=== PATIENT | male | born 1940 | race Caucasian/White ===

== ENCOUNTER 2023-05-29 23:52 | Inpatient (IN) | payer OTHER, SELFPAY ==
[2023-05-29 17:19] VITALS: BP 143/66
[2023-05-29 17:40] LABS: % Basophils 0.1 % (0-2); % Eosinophils 0.1 % (0-6); % Immature Granulocytes 0.4 % (0-0.5); % Lymphocytes 7.1 % (20.5-51.1); % Monocytes 6.2 % (1.7-9.3); % Neutrophils 86.1 % (42.2-75.2); Absolute Lymphocytes 0.5 10^3/uL (1.2-3.4); Absolute Monocytes 0.5 10^3/uL (0.1-0.6); Absolute Neutrophils 6.2 10^3/uL (1.4-6.5); Hematocrit 40.7 % (39.0-52.0); Hemoglobin 13.9 g/dL (13.0-18.0); Mean Corp Hgb Conc. 34.2 g/dL (33.0-37.0); Mean Corpuscular Hgb 33.6 pg (27.0-31.0); Mean Corpuscular Volume 98.3 fL (80.0-94.0); Nucleated Red Blood Cells % 0 % (-); Red Blood Cell Count 4.14 10^6/uL (4.70-6.10); Red Cell Dist. Width 17.4 % (11.5-14.5); White Blood Cell Count 7.2 10^3/uL (4.8-10.8)
[2023-05-29 17:50] LABS: INR 1.38; PT 16.8 Sec (11.4-14.6)
[2023-05-29 17:51] LABS: APTT 31.4 Sec (23.4-35.0)
[2023-05-29 17:52] LABS: ALT (SGPT) 27 U/L (0-50); AST (SGOT) 41 U/L (17-59); Albumin 3.3 g/dl (3.5-5.0); Alkaline Phosphatase 71 U/L (38-126); Blood Urea Nitrogen 13 mg/dl (9-20); Calcium 8.1 mg/dl (8.4-10.2); Carbon Dioxide 30 mmol/L (22-30); Chloride 104 mmol/L (98-107); Glucose 117 mg/dl (70-99); Lipase 67 U/L (23-300); Mean Platelet Volume 9.2 fL (7.4-10.4); Platelet Count 85 10^3/uL (130-400); Potassium 3.4 mmol/L (3.5-5.1); Sodium 139 mmol/L (135-145); Total Protein 6.6 g/dl (6.3-8.2); eGFR > 60.00
[2023-05-29 19:49] VITALS: BMI 26.1
[2023-05-29 20:03] VITALS: BP 148/86
--- NOTE | 2023-05-29 20:49 | ED.GENMED ---
History of Present Illness
General
Chief Complaint: Breathing Problem
Source: patient and family (Son)
Exam Limitations: dementia (Slight Dementia)
Time Seen by Provider: 05/29/23 20:28
Travel History
Have you had any contact with someone who has COVID-19?: No
Do you have any symptoms of coronavirus? Fever > 100 degrees, chills, cough, shortness of breath, sore throat, loss of taste or smell, muscle aches, or headache?: No
History of Present Illness
History of Present Illness:
This is a 83 year old male that comes in with family with c/o fluid in his lungs and abd. Son states that he was the PCP and they went there as they had seen the grocery specialist and had not heard anything back. States that his weight went up
from 165 to 185 and he was SOB and coughing. States that he also had some dizziness. Denies any fever, chills, chest pain, abd pain, nausea, vomiting, diarrhea, headache, urianary burning.
Past History
Past History
ED Past Medical History: CAD, Cancer (Skin CA), CVA, Hypercholesterolemia, NIDDM and Other (Dementia, Cirrhosis of liver, )
ED Past Surgical History: Cardiac (Stent), Orthopedic (Back surgery) and Other (Hernia)
Social History
Tobacco: Former smoker
Alcohol: None
Personal:
Living: with family
Review of Systems
Review of Systems
Other source history: family
All Other Systems: ROS reviewed and negative except as documented in HPI and ROS
Constitutional: Reports no symptoms; Denies fever or chills
EENT: Reports no symptoms
Respiratory: Reports cough and trouble breathing
Cardiac: Reports no symptoms; Denies chest pain
ABD/GI: Reports other (ascites); Denies abdominal pain, nausea, vomiting or diarrhea
: Reports dark urine
Musculoskeletal: Reports no symptoms
Skin: Reports no symptoms
Neurological: Reports dizzy; Denies headache
Psychiatric: Reports no symptoms
Phy Exam
General Physical Exam
General Presentation: no apparent distress
General age: appears stated age
General Skin: warm and dry
General Habitus: elderly
General Mental: usual mental status
General Hydration: dry mucous membranes
ENT Exam
ENT Exam: TM's normal, pharynx normal and neck supple
Eye Exam
Eye Exam: EOMI
Cardiovascular Exam
Cardiovascular Exam: regular rate/rhythm and normal peripheral pulses
Pulmonary Exam
Pulmonary Exam: no respiratory distress, chest non tender, no rhonchi, no wheezing, no cough and other (Fine crackles at bases)
Gastrointestinal Exam
Gastrointestinal Exam: non tender, soft, no organomegaly, no pulsatile mass and ascites
Musculoskeletal Exam
Musculoskeletal Exam: full ROM and edema (+2 pitting edema of feet, lower legs into thighs)
Skin Exam
Skin Exam: normal color, warm/dry, no rash, no petechia and other (healing wounds on the left toes)
Psychiatric Exam
Psychiatric Exam: normal mood/affect
Scores
Heart Failure Risk
Heart Failure Risk Score: Not Applicable
Course
Orders/Labs/Results
Orders:
Orders
05/29/23 17:33
Complete Blood Count/With Diff Urgent
Comprehensive Metabolic Panel Urgent
Lipase Urgent
PT/INR [Prothrombin Time] Urgent
PTT Urgent
05/29/23 20:40
CR Chest - 2 Views Urgent
Comment:
Reason For Exam: sob cOUGH
US Abdomen Limited Urgent
Comment:
Reason For Exam: aBD ASCITES FLUID CHECK
05/29/23 20:55
Electrocardiogram (*1) Urgent
Reason for Study: Shortness of Breath
EKG- Treatment ONCE
05/29/23 23:06
Admit/Transfer Patient As Directed
Co-Sign Provider:
Level of Care: Inpatient admission
Assign to:: Telemetry
Physician / Group: Marj
Diagnosis: Ascites
Reason for Telemetry: Arrhythmia
Date to Stop Telemetry: 06/01/23
Time to Stop Telemetry: 11:00
Reason for Hospitalization: Paracentesis, GI consult
Expected length of stay greater than two midnights?: Yes
ELOS- Estimated Length of Stay in days: 3
I certify the patient meets the requirements for IP care: Yes
05/29/23 23:08
Code Status As Directed
Resuscitation Status: Full Code
05/29/23 23:27
Add On- LAB Routine
Tests Added?: direct bilirubin
05/29/23 23:28
Potassium Chloride [KCl] 20 meq 0.9% Sodium Chloride 250 ml [Nss] 250 ml IV NOW
05/29/23 23:29
COVID-19 Antigen Routine
Source: Nasal Swab
05/29/23 23:30
Procalcitonin Urgent
PCT Algorithmm Indication: Respiratory
06/01/23 11:00
DC Protocol for Telemetry ONCE
Abnormal Lab Results
05/29/23
17:33
RBC 4.14 L 10^6/uL
(4.70-6.10)
MCV 98.3 H fL
(80.0-94.0)
MCH 33.6 H pg
(27.0-31.0)
RDW 17.4 H %
(11.5-14.5)
Plt Count 85 L 10^3/uL
(130-400)
Absolute Lymphs (auto) 0.5 L 10^3/uL
(1.2-3.4)
Neutrophils % 86.1 H %
(42.2-75.2)
Lymphocytes % 7.1 L %
(20.5-51.1)
PT 16.8 H Sec
(11.4-14.6)
Potassium 3.4 L mmol/L
(3.5-5.1)
Creatinine 0.6 L mg/dL
(0.7-1.3)
Glucose 117 H mg/dl
(70-99)
Calcium 8.1 L mg/dl
(8.4-10.2)
Total Bilirubin 2.0 H mg/dl
(0.2-1.3)
Albumin 3.3 L g/dl
(3.5-5.0)
05/29/23 17:33
05/29/23 17:33
Plt low, PT 16.8 with INR 1.38, PTT 31. 3, Lipase normal at 67, Glucose nonfasting. Calcium slightly low. Total sedrick mildly elevated. Albumin slightly low.
Vital Signs
Initial and Last Documented VS:
Initial Vital Signs
Temp Pulse Resp BP Pulse Ox
97.1 F 59 20 143/66 91
05/29/23 17:19 05/29/23 17:19 05/29/23 17:19 05/29/23 17:19 05/29/23 17:19
Last Documented Vital Signs
Temp Pulse Resp BP Pulse Ox
97.3 F 69 17 126/66 99
05/29/23 22:54 05/30/23 00:15 05/30/23 00:15 05/30/23 00:00 05/30/23 00:19
MDM/Problems Addressed
Differential Diagnosis Includes:
Abd ascites, CHF
MDM/Problems Addressed:
This is a 83 year old male that is brought in by his family with c/o fluid in the lungs and abd ascities. Son states that he needs to be tapped.
Will get labs and Chest X- Ray. Will also get limited US.
Back into see patient and son. Explained that he would be admitted. Chest x-ray was read as Pleural effusion with pneumonia. However, do not feel that this is a Pneumonia as patient has no cough, fever or WBC count. Will hold off on antibiotics.
Patient will be admitted. Hospitalist notified.
Chronic conditions affecting care: Other (Ascites, )
Acute Exacerbation and/or Progression of Chronic Illness:
ascites
*Radiology
Radiology exam reviewed: radiology read reviewed (US-Large amount ascites in bilateral upper and lower quadrants CHest- Mild left lower lobe Pneumonia. Nonspecific small right pleural effusion)
*Pulse Oximetry
Patient hypoxic: no
*EKG
Interpreted by ED Provider?: Yes
Heart Rate: 65
Rate: normal
Rhythm: sinus
[place]: left axis deviation
Interval: first degree heart block
QRS Pattern: low voltage
Ischemia: no ischemia (Checked by Dr. Pepper)
*Round Up Ring Hand Interpretation
Rate: normal
Heart Rate: 63
Rhythm: sinus
*Critical Care Note
Total Time (30-74mins, 75-104mins- exclusive of procedures): Not Applicable
ED Attending Note
-
Portions of this chart may have been created with voice recognition software.� Occasional wrong word or��sound alike� substitutions may have occurred due to the inherent limitations of voice recognition software.
Discharge Plan
Departure
Patient Disposition: Admit
Date of Disposition: 05/29/23
Time of Disposition: 22:11
Admit to: Telemetry
Presentation/result/management discussed w/ accepting MD/DO: Hospitalist
Patient with high blood pressure during this ER visit?: Yes
Condition: Good
Covid-19: Not Applicable
Discharge Problem:
Pleural effusion, Abdominal ascites
Interventions
Interventions:
*Risk Screen - Suicide Last Done: 05/29/23 19:54
*General Assessment Last Done: 05/29/23 19:54
*Neglect/Abuse Screening Last Done: 05/29/23 21:06
ED- Fall Risk Assessment Last Done: 05/29/23 21:06
*ED COVID-19 Vaccine History Last Done: 05/29/23 19:54
ED- Cardiac Assessment Last Done: 05/29/23 21:06
ED- Pulmonary Assessment Last Done: 05/29/23 21:06
[2023-05-29 21:00] VITALS: BP 130/95
[2023-05-29 22:11] VITALS: BP 137/77
[2023-05-29 23:00] VITALS: BP 123/69
--- NOTE | 2023-05-29 23:19 | HPS.HSE ---
Addendum entered and electronically signed by Kym Mcmahan MD 05/30/23 00:01:
I saw and examined the patient.
The EDGE FINISHER's note was reviewed and I agree with the note.
Comment:
Mr. Chandu Mcgrath is a 83 yo man with hx CAD, atrial fibrillation, HLD, NIDDM, dementia who presents to the ER with abdominal swelling. Patient poor historian. Son reports he was admitted in [place] last year and had thoracentesis of lung with
complication of pneumothorax but swelling in abdomen was not addressed. It has been progressive resulting in ER visit today. Triage VS T 97.1, P 59, RR 20 BP 143/66, SpO2 91%. Labs with WBC 7.2, Hg 13.9, PLT 85. INR 1.38. Na 139, K+ 3.4, Cr
0.6, Glucose 117.
On exam patient is frail appearing, poor historian, lungs with decreased breath sounds. abdomen distended, + fluid shift, b/l LE swelling.
CXR
IMPRESSION:
MilD left lower lobe pneumonia. Nonspecific small right pleural effusion.
ABDOMEN US
Findings/impression:
Large amount ascites in bilateral upper and lower quadrants.
Patient will be admitted for further work-up and treatment of significant abdominal ascites. IR consulted for paracentesis. Son reports ascites has been present for many months but not fully worked up. Will consult GI. Cirrhosis noted in
history, need to obtain records.
Mild LLL pneumonia seen on CXR but patient without leukocytosis or fever. Suspect resp symptoms mainly related to large volume ascites. Will follow up procalcitonin.
Original Note:
Family Physician
-
Family Physician: Adrian Edmonds
Chief Complaint
-
Abdominal Distention
History of Present Illness
Patient is an 83 y/o male past medical history of CAD, CVA, DM who presents with shortness of breath and increased abdominal distention. Patient's son provide history due to dementia. Patient was recently at [facility] where he required
thoracentesis of his right lung. It is unclear why patient developed the the pleural effusion. Son notes since returning home patient has been having increasing abdominal distension, and has gained 20lbs. There is no reported history of heart
failure. There is question of cirrhosis, though son does not confirm any history of liver disease.
Medical History
Past Medical History
Past Medical History: Reports Other
Additional Past Medical History:
Coronary Artery Disease s/p Stents
Paroxysmal Atrial Fibrillation
CVA with Residual Right Arm Weakness
Chronic Hypotension
Hyperlipidemia
Diabetes Mellitus, Type
BPH
Dementia
Past Surgical History: Reports Other
Additional Past Surgical History:
Back Surgery x 3
Appendectomy
Social History
Tobacco: Former Smoker
Alcohol: Former (Per son didn't drink much, but when he did drink he couldn't handle his liquor )
Family History
Family History: Unable to Obtain
Allergies / Home Medications
Allergies reflects when Allergies were last updated in [employer].
Home Medications with original date entered in [employer]
Allergy/Medication List:
Allergies
Allergy/AdvReac Type Severity Reaction Status Date / Time
Sulfa (Sulfonamide Allergy Unknown Verified 05/29/23 17:19
Antibiotics)
Tetanus Vaccines and Toxoid Allergy Unknown Verified 05/29/23 17:19
Home Medications
acetaminophen 500 mg tablet 500 mg PO Q6H PRN mild pain/fever 05/29/23
amiodarone 200 mg tablet 200 mg PO DAILY 05/29/23
atorvastatin 40 mg tablet 40 mg PO DAILY 05/29/23
clopidogrel 75 mg tablet 75 mg PO DAILY 05/29/23
empagliflozin 25 mg-linagliptin 5 mg tablet (Glyxambi) 1 tab PO DAILY 05/29/23
finasteride 5 mg tablet 5 mg PO DAILY 05/29/23
midodrine 5 mg tablet 5 mg PO BID@0800,1300 05/29/23
nitroglycerin 0.4 mg sublingual tablet 0.4 mg sublingual [id number] PRN chest pain 05/29/23
venlafaxine 25 mg tablet 25 mg PO BID@0800,1300 05/29/23
Review of Systems
-
Unable to obtain full review of systems at this time due to: Dementia
Physical Exam
Vital Signs
Vital Signs
Temp Pulse Resp BP Pulse Ox
97.3 F 65 19 137/77 97
05/29/23 22:54 05/29/23 22:30 05/29/23 22:30 05/29/23 22:11 05/29/23 22:30
Physical Exam
General: Comfortable and Conversant
HEENT: Anicteric and Moist mucous membranes
Respiratory: Rales (Bilateral bases)
Cardiac: S1/S2 and Regular Rhythm
GI: Soft, Non Tender and Distended
Musculoskeletal: No Clubbing, No Cyanosis and Other (+2 pitting edema bilateral lower ext edema)
Skin: Warm and Dry
Neuro: Awake and Alert
Laboratory Results
-
05/29/23 17:33
05/29/23 17:33
Laboratory Results
PT 16.8 Sec (11.4-14.6) H 05/29/23 17:33
INR 1.38 05/29/23 17:33
APTT 31.4 Sec (23.4-35.0) 05/29/23 17:33
Total Bilirubin 2.0 mg/dl (0.2-1.3) H 05/29/23 17:33
AST 41 U/L (17-59) 05/29/23 17:33
ALT 27 U/L (0-50) 05/29/23 17:33
Alkaline Phosphatase 71 U/L (38-126) 05/29/23 17:33
Lipase 67 U/L (23-300) 05/29/23 17:33
Data Reviewed
-
Diagnostic Radiology: Report Reviewed by me
Ultrasound: Report Reviewed by me
Lab Data: Labs Reviewed by me
Impression/Plan
-
Increased Abdominal Ascites, questionable history of cirrhosis
-Consult IR for paracentesis
-Consult GI
Questionable PNA by CXR
-Patient without fevers or leukocytosis
-Hold on antibiotics
-Check Procal
Coronary Artery Disease s/p Stents
CVA with Residual Right Arm Weakness
-Continue Plavix
Paroxysmal Atrial Fibrillation
-Continue amiodarone
-Patient is not on anticoagulation as outpatient likely due to thrombocytopenai
Chronic Hypotension
-Continue Midodrine
Hyperlipidemia
-Continue atorvastatin
Diabetes Mellitus, Type II
-Hold oral meds
-Monitor sugars and continue coverage insulin
BPH
-Continue finasteride
Dementia
-Continue venlafaxine
-Monitor for mood/behavior changes
Code Status: Full Code
--- NOTE | 2023-05-29 23:23 | W.PN.UPDATE ---
Update Note
Progress Note Update
I saw and examined the patient.
The CLINICAL PRODUCT MANAGER's note was reviewed and I agree with the note.
Comment:
Mr. Chandu Mcgrath is a 83 yo man with hx CAD, atrial fibrillation, HLD, NIDDM, dementia who presents to the ER with abdominal swelling. Patient poor historian. Son reports he was admitted in [place] last year and had thoracentesis of lung with
complication of pneumothorax but swelling in abdomen was not addressed. It has been progressive resulting in ER visit today. Triage VS T 97.1, P 59, RR 20 BP 143/66, SpO2 91%. Labs with WBC 7.2, Hg 13.9, PLT 85. INR 1.38. Na 139, K+ 3.4, Cr
0.6, Glucose 117.
On exam patient is frail appearing, poor historian, lungs with decreased breath sounds. abdomen distended, + fluid shift, b/l LE swelling.
CXR
IMPRESSION:
MilD left lower lobe pneumonia. Nonspecific small right pleural effusion.
ABDOMEN US
Findings/impression:
Large amount ascites in bilateral upper and lower quadrants.
Patient will be admitted for further work-up and treatment of significant abdominal ascites. IR consulted for paracentesis. Son reports ascites has been present for many months but not fully worked up. Will consult GI. Cirrhosis noted in
history, need to obtain records.
Mild LLL pneumonia seen on CXR but patient without leukocytosis or fever. Suspect symptoms mainly related to large volume ascites. Will follow up procalcitonin.
[2023-05-30] VITALS (17 sets, daily range): BP systolic 63–160; BP diastolic 56–90; BMI 26.0
[2023-05-30] MEDS: KCL 260 MEQ IV (00:29)
[2023-05-30 00:32] LABS: COVID-19 Antigen Negative (Negative)
[2023-05-30 00:46] LABS: Procalcitonin < 0.05 ng/ml (0.0-0.25)
[2023-05-30 01:36] LABS: Direct Bilirubin 0.7 mg/dl (0.0-0.4)
--- NOTE | 2023-05-30 02:11 | PTCARENOTE ---
Pt received from ED via stretcher. Pulled over to bed x3 without incident. AAOx2 (time). Telemetry = SR/1st degree/BBC/prolonged QT. Oriented to surroundings and plan of care discussed. Pt is very poor historian, unable to verify home meds/PMH.
Pt edentulous (reports dentures are at home) somewhat garbled speech. Admission completed w/patient and medical record. Full physical assessment documented (refer to worklist). Pt with scattered scabbed abrasions to LE, feet, toes, all HANDTOOLS REPAIRER.
Preventative heel foams placed. Pt able to turn self in bed. Abdomen largely distended, firm, ascites. #22 RFA with KCL rider infusing without complication. Bed alarm active for safety. Call hdz within reach. Will continue to closely monitor.
[2023-05-30 06:24] LABS: Hematocrit 37.2 % (39.0-52.0); Hemoglobin 12.3 g/dL (13.0-18.0); Mean Corp Hgb Conc. 33.1 g/dL (33.0-37.0); Mean Corpuscular Hgb 32.8 pg (27.0-31.0); Mean Corpuscular Volume 99.2 fL (80.0-94.0); Mean Platelet Volume 8.9 fL (7.4-10.4); Platelet Count 76 10^3/uL (130-400); Red Blood Cell Count 3.75 10^6/uL (4.70-6.10); Red Cell Dist. Width 17.2 % (11.5-14.5); White Blood Cell Count 5.1 10^3/uL (4.8-10.8)
[2023-05-30 07:01] LABS: Blood Urea Nitrogen 14 mg/dl (9-20); Calcium 7.9 mg/dl (8.4-10.2); Carbon Dioxide 32 mmol/L (22-30); Chloride 104 mmol/L (98-107); Estimated Creatinine Clearance 88 ml/min; Glucose 74 mg/dl (70-99); Magnesium 2.2 mg/dl (1.6-2.3); Potassium 3.4 mmol/L (3.5-5.1); eGFR > 60.00
[2023-05-30 07:07] LABS: Sodium 139 mmol/L (135-145)
[2023-05-30 08:07] LABS: Glucose - Point of Care 102 mg/dl (70-99)
[2023-05-30] MEDS: NOVOLOG FLEXPEN-LOW RESISTANCE SC ×3 (08:15→17:08)
[2023-05-30 09:11] LABS: Glycohemoglobin (HgbA1c) 5.5 % (4.0-5.6)
--- NOTE | 2023-05-30 09:27 | W.PN.HOSP.TC ---
Today's Communication/Plan
-
see A/P
Assessment / Plan
Assessment / Plan
83 y/o male past medical history of CAD, atrial fibrillation, HLD, NIDDM, dementia, CVA, who presented with shortness of breath and increased abdominal distention.�Patient's son provide history due to dementia.�
Patient was recently at [facility] where he required thoracentesis of his right lung.� It is unclear why patient developed the pleural effusion.� Son notes since returning home patient has been having increasing abdominal distension, and has
gained 20lbs. There is no reported history of heart failure. There is question of cirrhosis, though son does not confirm any history of liver disease.
A/P:
# Increased Abdominal Ascites, questionable history of cirrhosis
s/p large volume paracentesis (9 L removed) by IR 05/30 ; give albumen 62.5 g after paracentesis
Ascitic fluid neg for SBP
SAAG 2.3, indicating portal hypertension
Check echo
GI consulted
Follow hepatitis panel
# Questionable PNA by CXR
Patient without fevers or leukocytosis
Procal negative
Hold on antibiotic
# Coronary Artery Disease s/p Stents
# CVA with Residual Right Arm Weakness
Continue Plavix
# Paroxysmal Atrial Fibrillation
Continue amiodarone
Patient is not on anticoagulation as outpatient likely due to thrombocytopenia
# Chronic Hypotension
BP has improved
Continue Midodrine with holding parameter
BP Stable
# Hyperlipidemia
Continue atorvastatin
# Diabetes Mellitus, Type II
Hold oral meds
Monitor sugars and continue coverage insulin
# BPH
Continue finasteride
# Dementia
Continue venlafaxine
Monitor for mood/behavior changes
# Hypokalemia
replete
Mag WNL
Code Status: Full Code
SCD for DVT ppx
DW RN
called son to update, call not answered
Anticipated Discharge: 24 - 48 hours
Subjective/Interval History
-
Date of Service: May 30, 2023
Objective Data
-
Labs:
Laboratory Results
05/30/23
05:42
WBC 5.1
Hgb 12.3 L
Hct 37.2 L
Plt Count 76 L
Sodium 139
Potassium 3.4 L
Chloride 104
Carbon Dioxide 32 H
BUN 14
Creatinine 0.7
Glucose 74
Calcium 7.9 L
Vital Signs:
Vital Signs
Temp Pulse Resp BP Pulse Ox
36.4 C 62 14 117/67 99
05/30/23 07:57 05/30/23 07:57 05/30/23 07:57 05/30/23 07:57 05/30/23 07:57
I&O
05/29/23 05/30/23 05/31/23
06:59 06:59 06:59
Intake Total 120 / 120
Output Total 300 / 300
Balance -180 / -180
Review of Systems
-
Unable to obtain full review of systems at this time due to: Other (sleeping)
Physical Exam
-
General: Well Developed, Well Nourished and Comfortable
HEENT: Normocephalic, Atraumatic, Nose Appears Normal and Ears Appear Normal
Respiratory: Clear to Auscultation and Non Labored Respirations; Negative Accessory Resp Muscle Use
Cardiac: Regular Rhythm and S1/S2
GI: Soft, Nontender and Nondistended
Skin: Warm and Dry
Psych: Calm
Data Reviewed
-
Labs: Labs Reviewed by me
--- NOTE | 2023-05-30 10:25 | CON.GI ---
Addendum entered and electronically signed by Magdiel Swain MD 05/30/23 19:09:
I saw and examined the patient.
The PA's note was reviewed and I agree with the note.
Comment:
The patient is a 83 year old male with h/o CAD (s/p stent on Plavix), afib, CVA with residual right arm weakness, DM, hyperlipidemia, and dementia who p/w abdominal distension. This was noted for past few months and his abdomen increased in size.
Denies jaundice, abdo pain. No history of liver disease. Patient has remote h/o alcohol abuse, he used to drink a fifth of liquor every day about 30 years ago. Gained weight, about 20 pounds per hospitalist note.
Impression / Rec:
1. New onset ascites - poor historian with dementia. Has thrombocytopenia and mildly elevated INR. No imaging done here yet for his liver. Given his biochemical findings and alcohol hx (although remote), likely has decompensated cirrhosis.
Removed 9 liters of ascitic fluid today. Albumin given. SAAG > 1.1, likely portal hypertensive ascites which is consistent with likely underlying cirrhosis. Will exclude other etiologies with US liver w/ doppler. Check viral hep panel and other
serologic tests for chronic liver dz for now. Will follow.
Original Note:
Consultation
-
Date/Time Consultation Requested: 05/30/23 0052
Date/Time Consultation Performed: 05/30/23 1130
Requesting Provider: Mia Baig PA-C
Performing Provider: Dr. Swain / Lana Green PA-C
Reason for Consultation: ascites
Medical History
Chief Complaint / HPI
Chief Complaint: abdominal distension
History of Present Illness:
Chandu is an 83 year old male with a past medical history of CAD (s/p stent, on Plavix), atrial fibrillation, CVA with residual right arm weakness, DM, hyperlipidemia, and dementia who presented to the hospital with complaint of abdominal
distension. Patient had noticed this over the past few months and states it was increasing in size. No abdominal pain, nausea, vomiting, diarrhea or constipation. He denies any jaundice or dark urine. No history of liver disease. Patient denies
drinking any alcohol now, but states that 30 years ago he used to drink a fifth of liquor every day. Appetite has been good, no weight loss. He has recently gained weight, about 20 pounds per hospitalist note. Patient is very pleasant, although
somewhat of a poor historian due to dementia. Labs reviewed. LFTs: AST 41, ALT 27, alk phos 71, total bili 2.0, direct bili 0.7. CBC: WBC 5.1, Hgb 12.3, platelets 76. Coags: PT 16.8, INR 1.38. US abdomen showed large amount of ascites. Patient
underwent paracentesis today (05/30) with 9L removed, ascitic fluid analysis pending.
Past Medical History
Past Medical History: CAD, Hypercholesterolemia, NIDDM and Other (CVA with residual right arm weakness, )
Social History
Tobacco: Former Smoker
Alcohol: Former (pt reports 30 years ago he drank a fifth of liquor every day)
Drug: None
Family History
Family History: Other (no family history of GI malignancies or liver disease)
Allergies / Home Medications
Allergy/AdvReac Type Severity Reaction Status Date / Time
Sulfa (Sulfonamide Allergy Unknown Verified 05/29/23 17:19
Antibiotics)
Tetanus Vaccines and Toxoid Allergy Unknown Verified 05/29/23 17:19
Medication Instructions Recorded
acetaminophen 500 mg tablet 500 mg PO Q6H PRN mild pain/fever 05/29/23
amiodarone 200 mg tablet 200 mg PO DAILY Arrhythmia 05/29/23
atorvastatin 40 mg tablet 40 mg PO DAILY High Cholesterol 05/29/23
clopidogrel 75 mg tablet 75 mg PO DAILY Blood Clot 05/29/23
Prevention/Tx
empagliflozin 25 mg-linagliptin 5 1 tab PO DAILY Diabetes 05/29/23
mg tablet (Glyxambi)
finasteride 5 mg tablet 5 mg PO DAILY PROSTATE HEALTH 05/29/23
midodrine 5 mg tablet 5 mg PO BID@0800,1300 Blood 05/29/23
Pressure
nitroglycerin 0.4 mg sublingual 0.4 mg sublingual [id number] PRN 05/29/23
tablet chest pain
venlafaxine 25 mg tablet 25 mg PO BID@0800,1300 Mental 05/29/23
Health
Review of Systems
-
History Source: Patient
All other systems: A 12 pt ROS was Negative except as stated above in HPI
Vital Signs
Temp Pulse Resp BP Pulse Ox
97.7 F 63 18 136/82 98
05/30/23 09:33 05/30/23 09:33 05/30/23 09:33 05/30/23 09:33 05/30/23 09:33
Physical Exam
Exam
General: Well Developed, Well Nourished and No Apparent Distress
HEENT: Anicteric
Respiratory: Clear
Cardiac: Regular Rhythm
GI: Soft, Non Tender, Normal Bowel Sounds and Distended
Skin: Warm and Dry
Neuro: Awake and Alert
Psych: Calm
Results
WBC 5.1 10^3/uL (4.8-10.8) 05/30/23 05:42
Hgb 12.3 g/dL (13.0-18.0) L 05/30/23 05:42
Hct 37.2 % (39.0-52.0) L 05/30/23 05:42
MCV 99.2 fL (80.0-94.0) H 05/30/23 05:42
Plt Count 76 10^3/uL (130-400) L 05/30/23 05:42
Absolute Neuts (auto) 6.2 10^3/uL (1.4-6.5) 05/29/23 17:33
PT 16.8 Sec (11.4-14.6) H 05/29/23 17:33
INR 1.38 05/29/23 17:33
APTT 31.4 Sec (23.4-35.0) 05/29/23 17:33
Sodium 139 mmol/L (135-145) 05/30/23 05:42
Potassium 3.4 mmol/L (3.5-5.1) L 05/30/23 05:42
Chloride 104 mmol/L (98-107) 05/30/23 05:42
Carbon Dioxide 32 mmol/L (22-30) H 05/30/23 05:42
BUN 14 mg/dl (9-20) 05/30/23 05:42
Creatinine 0.7 mg/dL (0.7-1.3) 05/30/23 05:42
Calcium 7.9 mg/dl (8.4-10.2) L 05/30/23 05:42
Total Bilirubin 2.0 mg/dl (0.2-1.3) H 05/29/23 17:33
AST 41 U/L (17-59) 05/29/23 17:33
ALT 27 U/L (0-50) 05/29/23 17:33
Alkaline Phosphatase 71 U/L (38-126) 05/29/23 17:33
Lipase 67 U/L (23-300) 05/29/23 17:33
Diagnostic Image Results:
US Abdomen (limited) 05/29/23:
Large amount ascites in bilateral upper and lower quadrants.
Paracentesis 05/30/23:
Successful ultrasound guided diagnostic and therapeutic paracentesis.
9000 cc of clear donato ascitic fluid was evacuated. Samples sent for analysis as requested.
Prior GI Procedures:
EGD: never
Colonoscopy: 10 yrs ago, ?polyps
Assessment / Plan
-
83 year old male with CAD (s/p stent, on Plavix), atrial fibrillation, CVA with residual right arm weakness, DM, hyperlipidemia, and dementia who presented to the hospital with complaint of abdominal distension. Patient had noticed this over the
past few months and states it was increasing in size. No abdominal pain, nausea, vomiting, diarrhea or constipation. He denies any jaundice or dark urine. No history of liver disease. Patient denies drinking any alcohol now, but states that 30 years
ago he used to drink a fifth of liquor every day. Appetite has been good, no weight loss. He has recently gained weight, about 20 pounds per hospitalist note. Patient is very pleasant, although somewhat of a poor historian due to dementia. Labs
reviewed. LFTs: AST 41, ALT 27, alk phos 71, total bili 2.0, direct bili 0.7. CBC: WBC 5.1, Hgb 12.3, platelets 76. Coags: PT 16.8, INR 1.38. US abdomen showed large amount of ascites. Patient underwent paracentesis today (05/30) with 9L removed,
ascitic fluid analysis pending.
IMPRESSION / PLAN:
Ascites, new-onset
-suspect ascites may be due to underlying cirrhosis
-s/p paracentesis 05/30 with 9L removed
-awaiting ascites fluid analysis
-will repeat US post-paracentesis, with US abdomen w Doppler to further image the liver
-will order Hepatitis serologies
-consider 2D echocardiogram to rule out heart failure as a possible cause of the ascites
We will follow.
-
-
Thank you for consultation and allowing me to participate in the patient's care. Please call the catering operations manager GI physician during the after hours with any questions or concerns.
[2023-05-30] MEDS: PLAVIX 75 MG PO (10:59)
[2023-05-30] MEDS: EFFEXOR 25 MG PO ×2 (10:59→14:15)
[2023-05-30] MEDS: LIPITOR 40 MG PO (10:59)
[2023-05-30] MEDS: PROSCAR 5 MG PO (10:59)
[2023-05-30] MEDS: KCL 20 MEQ PO (11:01)
[2023-05-30] MEDS: ProAmatine 5 MG PO (11:01)
[2023-05-30] MEDS: PACERONE 200 MG PO (11:01)
[2023-05-30 11:07] LABS: Body Fluid Albumin < 1.0 g/dl; Body Fluid Amylase < 30 U/L; Body Fluid LDH < 90 U/L
[2023-05-30 11:41] LABS: Glucose - Point of Care 85 mg/dl (70-99)
[2023-05-30] MEDS: FLUSH (NSS) 1 FLUSH IV (12:43)
[2023-05-30] MEDS: FLEXBUMIN 100 IV ×2 (12:43→14:16)
[2023-05-30 13:12] LABS: Body Fluid Mononuclear 87.3 %; Body Fluid Polymorphonuclear 12.7 %; Body Fluid WBC 332 /CUMM
[2023-05-30 13:13] LABS: Body Fluid Second Tech SD
--- NOTE | 2023-05-30 14:02 | CM ---
Chart reviewed. Spoke with pt at bedside and son via phone
Pt resides in a 2 story home with his and son - they are his care-takers
Has a ramp into home and a stair glide; other dme include rolling walker, quad cane and shower chair
Has been to rehab in past - unsure of facility
Has had VNA/PT at home in past with [facility]
Will have transportation home at d/c
PCP - Dr Edmonds
Pharm - [facility]
Plan - tbd -anticipate home with home health
[2023-05-30] MEDS: ProAmatine PO (14:16)
[2023-05-30] MEDS: FLEXBUMIN 50 IV (16:04)
[2023-05-30 17:06] LABS: Glucose - Point of Care 134 mg/dl (70-99)
[2023-05-30 21:54] LABS: Hepatitis A IgM Antibody Negative (Negative); Hepatitis B Core Ab, IgM Negative (Negative)
[2023-05-30 21:56] LABS: Hepatitis B Surface Antigen Negative (Negative)
[2023-05-30 22:14] LABS: Hepatitis B Core Ab, Total Negative (Negative); Hepatitis B Surface Antibody Negative; Hepatitis C Antibody Negative (Negative)
[2023-05-30 22:35] LABS: Glucose - Point of Care 190 mg/dl (70-99)
[2023-05-30 22:43] LABS: Hepatitis A Antibody, Total Positive (Negative)
[2023-05-31] VITALS (8 sets, daily range): BP systolic 101–120; BP diastolic 52–67; PULSE 62–64; O2SAT 97–98; BMI 26.1
[2023-05-31 06:27] LABS: Hematocrit 37.1 % (39.0-52.0); Hemoglobin 12.1 g/dL (13.0-18.0); Mean Corp Hgb Conc. 32.6 g/dL (33.0-37.0); Mean Corpuscular Volume 101.1 fL (80.0-94.0); Mean Platelet Volume 9.8 fL (7.4-10.4); Platelet Count 68 10^3/uL (130-400); Red Blood Cell Count 3.67 10^6/uL (4.70-6.10); White Blood Cell Count 5.5 10^3/uL (4.8-10.8)
[2023-05-31 07:05] LABS: ALT (SGPT) 19 U/L (0-50); AST (SGOT) 32 U/L (17-59); Albumin 2.9 g/dl (3.5-5.0); Alkaline Phosphatase 51 U/L (38-126); Blood Urea Nitrogen 17 mg/dl (9-20); Calcium 7.6 mg/dl (8.4-10.2); Carbon Dioxide 35 mmol/L (22-30); Chloride 101 mmol/L (98-107); Estimated Creatinine Clearance 88 ml/min; Glucose 84 mg/dl (70-99); Iron 43 ug/dl (49-181); Magnesium 2.2 mg/dl (1.6-2.3); Potassium 3.5 mmol/L (3.5-5.1); Sodium 137 mmol/L (135-145); Total Bilirubin 1.2 mg/dl (0.2-1.3); Total Protein 5.3 g/dl (6.3-8.2); eGFR > 60.00
[2023-05-31 07:16] LABS: Percent Saturation 29 % (20-50); Total Iron Binding Capacity 147 ug/dl (261-462)
--- NOTE | 2023-05-31 07:21 | W.PN.HOSP.TC ---
Today's Communication/Plan
-
see bold
Assessment / Plan
Assessment / Plan
83 y/o male past medical history of CAD, atrial fibrillation, HLD, NIDDM, dementia, CVA, who presented with shortness of breath and increased abdominal distention.�Patient's son provide history due to dementia.�
Patient was recently at [facility] where he required thoracentesis of his right lung.� It is unclear why patient developed the pleural effusion.� Son notes since returning home patient has been having increasing abdominal distension, and has
gained 20lbs. There is no reported history of heart failure. There is question of cirrhosis, though son does not confirm any history of liver disease.
A/P:
# Increased Abdominal Ascites
# Cirrhosis
S/p large volume paracentesis (9 L removed) by IR 05/30 ; give albumin 62.5 g after paracentesis
Ascitic fluid neg for SBP, SAAG 2.3, indicating portal hypertension
Appreciate GI input, hepatitis panel negative, abdominal ultrasound confirms cirrhosis of the liver and portal hypertension
Started on Lasix and Aldactone
Pt rec HH vs no needs
# Hypokalemia
Repleted and resolved
# Questionable PNA by CXR
Patient without fevers or leukocytosis
Procal negative, monitor off of antibiotics
# Coronary Artery Disease s/p Stents
# CVA with Residual Right Arm Weakness
Continue Plavix
# Paroxysmal Atrial Fibrillation
Continue amiodarone
Patient is not on anticoagulation as outpatient likely due to thrombocytopenia
# Chronic Hypotension
BP has improved
Continue Midodrine with holding parameter
# Hyperlipidemia
Continue atorvastatin
# Diabetes Mellitus, Type II
Resume oral meds
Monitor sugars and continue coverage insulin
# BPH
Continue finasteride
# Dementia
Continue venlafaxine
Monitor for mood/behavior changes
Code Status: Full Code
SCD for DVT ppx
Updated son on phone 05/31
Physical Exam
General: Frail, elderly, no acute distress
HEENT: Normocephalic, Atraumatic, EOMI, MMM
Edentulous
Respiratory: Clear to Auscultation bilaterally
Cardiac: Normal S1/S2, Regular Rate and Rhythm
GI: Soft, Nontender, distended, ascites noted
Extremities: No Clubbing, Cyanosis, or Edema
Neuro: Pleasantly confused
Anticipated Discharge: 24 - 48 hours
Subjective/Interval History
-
Date of Service: May 31, 2023
Patient denies abdominal pain, denies nausea or vomiting.
Objective Data
-
Labs:
Laboratory Results
05/31/23
04:06
WBC 5.5
Hgb 12.1 L
Hct 37.1 L
Plt Count 68 L
Sodium 137
Potassium 3.5
Chloride 101
Carbon Dioxide 35 H
BUN 17
Creatinine 0.7
Glucose 84
Calcium 7.6 L
Total Bilirubin 1.2
AST 32
ALT 19
Alkaline Phosphatase 51
Vital Signs:
Vital Signs
Temp Pulse Resp BP Pulse Ox
97.1 F 58 16 108/52 97
05/31/23 03:30 05/31/23 03:30 05/31/23 03:30 05/31/23 03:30 05/31/23 03:30
I&O
05/30/23 05/31/23 06/01/23
06:59 06:59 06:59
Intake Total 120 / 120 1120 / 1120
Output Total 300 / 300 350 / 350
Balance -180 / -180 770 / 770
[2023-05-31 08:34] LABS: Glucose - Point of Care 131 mg/dl (70-99)
[2023-05-31] MEDS: NOVOLOG FLEXPEN-LOW RESISTANCE SC ×3 (08:45→17:48)
[2023-05-31] MEDS: LIPITOR 40 MG PO (08:55)
[2023-05-31] MEDS: ProAmatine 5 MG PO ×2 (08:55→13:47)
[2023-05-31] MEDS: PROSCAR 5 MG PO (08:55)
[2023-05-31] MEDS: PACERONE 200 MG PO (08:57)
[2023-05-31] MEDS: EFFEXOR 25 MG PO ×2 (08:57→13:47)
[2023-05-31] MEDS: PLAVIX 75 MG PO (08:57)
--- NOTE | 2023-05-31 10:24 | W.PN.GI.CBS2 ---
Addendum entered and electronically signed by Desire Ludwig MD 05/31/23 14:18:
I saw and examined the patient.
The SECONDARY ART TEACHER or PA's note was reviewed and I agree with the note.
Comment: I saw and examined the patient.
The SECONDARY ART TEACHER or PA's note was reviewed and I agree with the note.
Comment: 83 yo M with new onset ascites and new diagnosis of cirrhosis.
SAAG >1.1, protein 2.� Normal echo.
Plan to start low dose lasix 20/aldatone 50
If BMP normal tomorrow and patient doing well, plan for D/C in am.� Would recommend repeat BMP in 1 week.� Has follow up with GI scheduled 06/10 at 2:30pm.� Liver work up started in hospital will do complete liver work up as outpatient.� Does have
history of EtOH could be etiology.
Will need to d/w pt outpatient if he wants HCC screening, EV surveillance, etc.
Original Note:
Today's Communication / Plan
-
new onset ascites, with findings c/w cirrhosis
will start on spironolactone and furosemide
Assessment / Plan
-
83 year old male with CAD (s/p stent, on Plavix), atrial fibrillation, CVA with residual right arm weakness, DM, hyperlipidemia, and dementia who presented to the hospital with complaint of abdominal distension. Patient had noticed this over the
past few months and states it was increasing in size. No abdominal pain, nausea, vomiting, diarrhea or constipation. He denies any jaundice or dark urine. No history of liver disease. Patient denies drinking any alcohol now, but states that 30 years
ago he used to drink a fifth of liquor every day. Appetite has been good, no weight loss. He has recently gained weight, about 20 pounds per hospitalist note. Patient is very pleasant, although somewhat of a poor historian due to dementia. Labs
reviewed. LFTs: AST 41, ALT 27, alk phos 71, total bili 2.0, direct bili 0.7. CBC: WBC 5.1, Hgb 12.3, platelets 76. Coags: PT 16.8, INR 1.38. US abdomen showed large amount of ascites.
Patient underwent paracentesis 05/30 with 9L removed, albumin given. Ascitic fluid analysis shows SAAG >1.1, likely portal hypertensive ascites due to underlying cirrhosis.
US Abdomen with Doppler, 05/30/23:
1. Patent hepatic vasculature with appropriate directional flow, as described above.
2. Findings suggesting hepatic cirrhosis and changes of portal hypertension.
3. Upper abdominal ascites redemonstrated.
4. Cholelithiasis without sonographic evidence for acute cholecystitis
IMPRESSION / PLAN:
Ascites, new-onset, due to underlying cirrhosis
-s/p paracentesis 05/30 with 9L removed
-ascitic fluid SAAG >1.1, consistent with cirrhosis
-US findings also suggest hepatic cirrhosis and portal hypertension
-Hepatitis serologies negative (hep A ab positive indicating exposure/immunity)
-will start on spironolactone 50mg and furosemide 20mg
-recheck BMP in AM
-further workup can be completed outpatient, patient was offered an appointment in our office with me 06/10/23 at 2:30pm
We will follow.
Subjective
Subjective
Date of Service: May 31, 2023
Feels OK, feeling better post-paracentesis.
No abdominal pain, nausea, vomiting, diarrhea or constipation.
Objective
Data Reviewed
Laboratory Data:
Laboratory Results
05/31/23 04:06
05/31/23 04:06
Laboratory Results
PT 16.8 Sec (11.4-14.6) H 05/29/23 17:33
INR 1.38 05/29/23 17:33
APTT 31.4 Sec (23.4-35.0) 05/29/23 17:33
Magnesium 2.2 mg/dl (1.6-2.3) 05/31/23 04:06
Total Bilirubin 1.2 mg/dl (0.2-1.3) 05/31/23 04:06
AST 32 U/L (17-59) 05/31/23 04:06
ALT 19 U/L (0-50) 05/31/23 04:06
Alkaline Phosphatase 51 U/L (38-126) 05/31/23 04:06
Lipase 67 U/L (23-300) 05/29/23 17:33
Vital Signs and I&O:
Vital Signs
Temp Pulse Resp BP Pulse Ox
97.7 F 62 17 107/59 95
05/31/23 07:15 05/31/23 08:55 05/31/23 07:15 05/31/23 08:55 05/31/23 07:15
I&O
05/30/23 05/31/23 06/01/23
06:59 06:59 06:59
Intake Total 120 / 120 1120 / 1120
Output Total 300 / 300 350 / 350
Balance -180 / -180 770 / 770
Physical Exam
Physical Exam
Cardiology: Normal Sinus Rhythm
Pulmonary: Clear
GI: Soft, Distended, Non Tender and Normal Bowel Sounds
[2023-05-31 10:32] LABS: B.E. 7.8 mmol/L; HCO3 33.3 mmol/L (21-28); PCO2 49 mmHg (35-48); PO2 78 mmHg (83-108); pH 7.44 (7.35-7.45)
[2023-05-31] MEDS: ALDACTONE 50 MG PO (12:03)
[2023-05-31] MEDS: LASIX 20 MG PO (12:03)
[2023-05-31 12:46] LABS: Glucose - Point of Care 139 mg/dl (70-99)
[2023-05-31] MEDS: KCL 20 MEQ PO (14:26)
[2023-05-31 17:47] LABS: Glucose - Point of Care 123 mg/dl (70-99)
[2023-05-31 22:01] LABS: Glucose - Point of Care 128 mg/dl (70-99)
[2023-05-31] MEDS: TYLENOL 650 MG PO (22:04)
[2023-06-01 03:20] VITALS: BP 106/69
[2023-06-01 06:00] VITALS: BMI 23.2
[2023-06-01 07:10] VITALS: BP 120/65
[2023-06-01 07:11] LABS: Hematocrit 38.5 % (39.0-52.0); Hemoglobin 12.5 g/dL (13.0-18.0); Mean Corp Hgb Conc. 32.5 g/dL (33.0-37.0); Mean Corpuscular Hgb 32.8 pg (27.0-31.0); Mean Platelet Volume 9.8 fL (7.4-10.4); Platelet Count 73 10^3/uL (130-400); Red Blood Cell Count 3.81 10^6/uL (4.70-6.10); Red Cell Dist. Width 16.6 % (11.5-14.5); White Blood Cell Count 7.3 10^3/uL (4.8-10.8)
[2023-06-01 07:13] LABS: Glucose - Point of Care 122 mg/dl (70-99)
[2023-06-01 07:24] LABS: ALT (SGPT) 20 U/L (0-50); AST (SGOT) 37 U/L (17-59); Albumin 2.6 g/dl (3.5-5.0); Alkaline Phosphatase 62 U/L (38-126); Blood Urea Nitrogen 19 mg/dl (9-20); Calcium 7.5 mg/dl (8.4-10.2); Carbon Dioxide 32 mmol/L (22-30); Chloride 102 mmol/L (98-107); Estimated Creatinine Clearance 88 ml/min; Glucose 118 mg/dl (70-99); Magnesium 2.1 mg/dl (1.6-2.3); Potassium 3.8 mmol/L (3.5-5.1); Sodium 136 mmol/L (135-145); Total Protein 5.2 g/dl (6.3-8.2); eGFR > 60.00
[2023-06-01] MEDS: NOVOLOG FLEXPEN-LOW RESISTANCE SC (07:32)
--- NOTE | 2023-06-01 08:23 | W.PN.HOSP.TC ---
Today's Communication/Plan
-
Cleared by GI for discharge today
Assessment / Plan
Assessment / Plan
83 y/o male past medical history of CAD, atrial fibrillation, HLD, NIDDM, dementia, CVA, who presented with shortness of breath and increased abdominal distention.�Patient's son provide history due to dementia.�
Patient was recently at [facility] where he required thoracentesis of his right lung.� It is unclear why patient developed the pleural effusion.� Son notes since returning home patient has been having increasing abdominal distension, and has
gained 20lbs. There is no reported history of heart failure. There is question of cirrhosis, though son does not confirm any history of liver disease.
A/P:
# Increased Abdominal Ascites
# Cirrhosis
S/p large volume paracentesis (9 L removed) by IR 05/30 ; s/p albumin 62.5 g after paracentesis
Ascitic fluid neg for SBP, SAAG 2.3, indicating portal hypertension
Appreciate GI input, hepatitis panel negative, abdominal ultrasound confirms cirrhosis of the liver and portal hypertension
Started on Lasix and Aldactone 03/30, patient has tolerated meds
Cleared by GI for discharge today, follow-up with GI in the office, has appointment on 06/10
Discussed with son, patient needs to be on a low-sodium diet with 48 ounce fluid restriction
Follow-up with PCP in 1 week for repeat BMP
# Chronic Hypotension
BP has improved
Continue Midodrine with holding parameter
# Small right pleural effusion
Ultrasound shows 'small right pleural effusion is present with septations'
05/29 Echo EF of 55-60%.
�No obvious wall motion abnormality on limited views.
�Normal right ventricular size and function.
�Calcified aortic valve with possibly mild aortic stenosis (no Doppler
�interrogation and limited views).
Denies shortness of breath, satting 96% on room air
Continue Lasix and Aldactone as above
# Hypokalemia
Repleted and resolved
# Questionable PNA by CXR
Patient without fevers or leukocytosis
Procal negative, monitor off of antibiotics
# Coronary Artery Disease s/p Stents
# CVA with Residual Right Arm Weakness
Continue Plavix
#Pseudohypocalcemia
Corrected calcium is 8.62 due to low albumin of 2.6
# Paroxysmal Atrial Fibrillation
Continue amiodarone
Patient is not on anticoagulation as outpatient likely due to thrombocytopenia
# Hyperlipidemia
Continue atorvastatin
# Diabetes Mellitus, Type II
Resumed oral meds
Monitor sugars and continue coverage insulin
# BPH
Continue finasteride
# Dementia
Continue venlafaxine
Monitor for mood/behavior changes
Code Status: Full Code
SCD for DVT ppx
Updated son on phone 06/01
Physical Exam
General: Frail, elderly, no acute distress
HEENT: Normocephalic, Atraumatic, EOMI, MMM
Edentulous
Respiratory: Clear to Auscultation bilaterally
Cardiac: Normal S1/S2, Regular Rate and Rhythm
GI: Soft, Nontender, distended, ascites noted
Extremities: No Clubbing, Cyanosis, or Edema
Neuro: Pleasantly confused
Anticipated Discharge: Today
Subjective/Interval History
-
Date of Service: June 01, 2023
No acute events. Patient denies shortness of breath. No fever, no vomiting.
Objective Data
-
Labs:
Laboratory Results
06/01/23
05:26
WBC 7.3
Hgb 12.5 L
Hct 38.5 L
Plt Count 73 L
Sodium 136
Potassium 3.8
Chloride 102
Carbon Dioxide 32 H
BUN 19
Creatinine 0.7
Glucose 118 H
Calcium 7.5 L
Total Bilirubin 1.0
AST 37
ALT 20
Alkaline Phosphatase 62
Vital Signs:
Vital Signs
Temp Pulse Resp BP Pulse Ox
97.7 F 65 17 106/69 98
06/01/23 03:20 06/01/23 03:20 06/01/23 03:20 06/01/23 03:20 06/01/23 03:20
I&O
05/31/23 06/01/23 06/02/23
06:59 06:59 06:59
Intake Total 1120 / 1120 560 / 560
Output Total 350 / 350 375 / 375
Balance 770 / 770 185 / 185
[2023-06-01] MEDS: EFFEXOR 25 MG PO ×2 (10:33→13:04)
[2023-06-01] MEDS: LASIX 20 MG PO (10:33)
[2023-06-01] MEDS: PLAVIX 75 MG PO (10:33)
[2023-06-01] MEDS: ALDACTONE 50 MG PO (10:34)
[2023-06-01] MEDS: PROSCAR 5 MG PO (10:34)
[2023-06-01] MEDS: ProAmatine PO ×2 (10:34→13:03)
[2023-06-01] MEDS: PACERONE 200 MG PO (10:35)
[2023-06-01] MEDS: LIPITOR 40 MG PO (10:35)
[2023-06-01 11:10] VITALS: BP 128/71
[2023-06-01 11:16] LABS: Glucose - Point of Care 164 mg/dl (70-99)
--- NOTE | 2023-06-01 11:26 | W.DCSUMMARY ---
Discharge Summary
Discharge Data
Date of Admission: 05/29/23
Date of Discharge: 06/01/23
-
Pending Results: No
Hospital Course
Discharge diagnoses:
Severe ascites
Cirrhosis
Portal hypertension
Chronic hypotension on midodrine
Small right pleural effusion
Hypokalemia
Abnormal chest x-ray
Coronary artery disease status post stent placement
History of stroke with residual right arm weakness
Dementia, unknown type
Pseudo hypocalcemia
Paroxysmal atrial fibrillation
Hyperlipidemia
Type 2 diabetes
Benign prostatic hypertrophy
Consults: GI, interventional radiology
CXR:
Mild left lower lobe pneumonia. Nonspecific small right pleural effusion.
Abd US:
1. Patent hepatic vasculature with appropriate directional flow, as described above.
2. Findings suggesting hepatic cirrhosis and changes of portal hypertension.
3. Upper abdominal ascites redemonstrated.
4. Cholelithiasis without sonographic evidence for acute cholecystitis
Chest US:
A small right pleural effusion is present with septations.
Echo:
�Technically difficult study.
�Grossly normal LV size and function.
�Estimated EF of 55-60%.
�No obvious wall motion abnormality on limited views.
�Normal right ventricular size and function.
�Calcified aortic valve with possibly mild aortic stenosis (no Doppler
�interrogation and limited views).
�Right heart pressures could not be determined.
�No prior study for comparison.
Procedures:
05/30/2023aracentesis by interventional radiology, draining 9 L
Hospital course:
83-year-old male with a past medical history of dementia, coronary artery disease, atrial fibrillation not on anticoagulation, hyperlipidemia, type 2 diabetes, and chronic hypotension on midodrine was admitted for increased abdominal distention.
Patient was seen in conjunction with GI, he has abdominal ascites. He underwent paracentesis by interventional radiology on 05/30/2023, draining 9 L. He received albumin afterwards. Fluid studies were negative for SBP. Abdominal ultrasound
confirmed liver cirrhosis with portal hypertension.
It is unclear the reason for his liver cirrhosis. He has a history of alcohol use, he stopped drinking decades ago. Hepatitis panel is negative. He was started on Aldactone 50 mg daily, Lasix 20 mg daily. He tolerated his medications.
Patient had hypokalemia. This was repleted and his potassium normalized.
Patient had an abnormal chest x-ray. He did not have any problems breathing. He was afebrile, WBC and procalcitonin normal. He was monitored off of antibiotics.
He is medically stable and cleared by GI for discharge. He has been instructed to adhere to a 48 ounce fluid restriction, low-sodium diet. He needs to follow-up with GI in the office, as well as his primary care doctor 1 week.
Disposition: Home with home care
Discharge planning: Required 40-minutes
Discharge Plan
-
Patient Disposition: Home with Home Care
Discharge Diagnosis/Procedures: Liver cirrhosis, ascites requiring paracentesis, paroxysmal atrial fibrillation, hypokalemia, coronary artery disease, history of stroke, type 2 diabetes, dementia
Condition: Fair
Diet: 2 Gram Sodium, Diabetic, Carb Controlled and Restrict fluids to 48 oz
Activity: As tolerated
Driving Restrictions: As prior to admission
Blood Work: BMP with your family doctor in 1 week
Specialty Instructions: Weigh Daily- Call MD for wt gain/loss 3 lbs overnight/5 lbs in 1 week
Activity Restrictions/Additional Instructions:
You need to adhere to a 48 ounce fluid restriction and a low-sodium diet.
This will help prevent the accumulation of fluid in your belly.
Taking furosemide/spironolactone and will also help prevent the accumulation of fluid in your belly.
Follow-up with your primary care doctor in 1 week, and GI as scheduled.
Instructions: Cirrhosis, Fluid in the belly (ascites)
Referrals:
Adrian Edmonds DO [Family Provider] - in one week
Lana Green PA-C [Specified Professional Personl] - 06/10/23 2:30 pm (Please call to reschedule if you can not keep this appointment. If your insurance requires a referral please contact your primary care physician prior to your appointment. )
Prescriptions:
New
furosemide 20 mg Tablet
20 mg PO DAILY Qty: 20 0RF
spironolactone 50 mg Tablet
50 mg PO DAILY Qty: 30 0RF
Continued
atorvastatin 40 mg tablet
40 mg PO DAILY
amiodarone 200 mg tablet
200 mg PO DAILY
venlafaxine 25 mg tablet
25 mg PO BID@0800,1300
midodrine 5 mg tablet
7.5 mg PO BID@0800,1300
Rx Instructions:
pt takes 1 and 1/2 tabs breakfast and lunch
clopidogrel 75 mg tablet
75 mg PO DAILY
acetaminophen 500 mg Tablet
500 mg PO Q6H PRN (Reason: mild pain/fever)
nitroglycerin 0.4 mg tablet, sublingual
0.4 mg sublingual [id number] PRN (Reason: chest pain)
finasteride 5 mg tablet
5 mg PO DAILY
Glyxambi 25-5 mg tablet
1 tab PO DAILY
Discharge Orders:
Discharge Patient (As Directed); Ordered 06/01/23
Ordered By: Lenny Shah
Discharge Date and Time
Discharge Date/Time: 06/01/23 16:27
[2023-06-01] MEDS: NOVOLOG FLEXPEN-LOW RESISTANCE 1 UNITS SC (13:03)
--- NOTE | 2023-06-01 14:19 | W.PN.GI.CBS2 ---
Addendum entered and electronically signed by Desire Ludwig MD 06/01/23 14:50:
counseled to pt should be on 2g na diet
Original Note:
Today's Communication / Plan
-
discharge on lasix 20/aldactone 50 and outpt follow up
Assessment / Plan
-
�83 yo M with new onset ascites and new diagnosis of cirrhosis.
SAAG >1.1, protein 2.� Normal echo.
Liver work up started in hospital will do complete liver work up as outpatient.� Does have history of EtOH could be etiology.
Continue lasix 20/aldactone 50 repeat BMP 1 week I put rx on pt chart and TT nursing.
Will need to d/w pt outpatient if he wants HCC screening, EV surveillance, etc. Will titrate up diuretics as tolerated outpatient.
Appointment in our office with Lana CARY 06/10/23 at 2:30pm
GI will sign off, team planning d/c today pls call with ?s or issues
Subjective
Subjective
Date of Service: June 01, 2023
no complaints except still distended
Objective
Data Reviewed
Laboratory Data:
Laboratory Results
06/01/23 05:26
06/01/23 05:26
Laboratory Results
PT 16.8 Sec (11.4-14.6) H 05/29/23 17:33
INR 1.38 05/29/23 17:33
APTT 31.4 Sec (23.4-35.0) 05/29/23 17:33
Magnesium 2.1 mg/dl (1.6-2.3) 06/01/23 05:26
Total Bilirubin 1.0 mg/dl (0.2-1.3) 06/01/23 05:26
AST 37 U/L (17-59) 06/01/23 05:26
ALT 20 U/L (0-50) 06/01/23 05:26
Alkaline Phosphatase 62 U/L (38-126) 06/01/23 05:26
Lipase 67 U/L (23-300) 05/29/23 17:33
Vital Signs and I&O:
Vital Signs
Temp Pulse Resp BP Pulse Ox
97.6 F 73 16 128/71 96
06/01/23 11:10 06/01/23 11:10 06/01/23 11:10 06/01/23 11:10 06/01/23 11:10
I&O
05/31/23 06/01/23 06/02/23
06:59 06:59 06:59
Intake Total 1120 / 1120 560 / 560 120 / 120
Output Total 350 / 350 375 / 375 400 / 400
Balance 770 / 770 185 / 185 -280 / -280
Physical Exam
Physical Exam
GI: Distended and Non Tender
[2023-06-01 16:00] VITALS: BP 127/69
--- NOTE | 2023-06-01 16:16 | CM ---
CM following re: d/c planning
Chart reviewed
Pt is medically stable for d/c
Post d/c recommendation is home with VN
Previous CM placed referral via care port to [facility] and referral accepted
Pt to f/u with GI and continue low sodium diet as directed
No additional d/c needs noted
PLAN; d/c home with [facility] VN
--- NOTE | 2023-06-01 16:58 | PTCARENOTE ---
script for blood work tucked in chart, nurse did not see. faxed to PCP. Called son Angel and notified him and what occurred and to call PCP on Saturday to verify. he was appreciative of measures to correct, and will call if any issues.
[2023-06-02 02:03] LABS: F-Actin Antibody IgG 6 Units (0-19)
== END 2023-06-01 16:27 | disposition home health service (06) | DRG 432 ==
LOC: 2 SOUTH 23:52
PROVIDERS: Emergency Medicine; Internal Medicine; Physician Assistant; Physician Assistant Medical; Radiology Diagnostic Radiology; ADMITTING PHYSICIAN Student in an Organized Health Care Education/Training Program; ATTENDING PHYSICIAN Family Medicine; CONSULT PHYSICIAN Internal Medicine Gastroenterology; EMERGENCY PHYSICIAN Emergency Medicine; FAMILY PHYSICIAN Family Medicine
PROC: 0W9G3ZX Drainage of Peritoneal Cavity, Percutaneous Approach, Diagnostic (ICD-10-PCS; 2023-05-30)
DX: K74.60 Unspecified cirrhosis of liver (principal); J18.9 Pneumonia, unspecified organism; J90 Pleural effusion, not elsewhere classified; R18.8 Other ascites; K76.6 Portal hypertension; F03.90 Unspecified dementia, unspecified severity, without behavioral disturbance, psychotic disturbance, mood disturbance, and anxiety; E11.9 Type 2 diabetes mellitus without complications; E78.00 Pure hypercholesterolemia, unspecified; I25.10 Atherosclerotic heart disease of native coronary artery without angina pectoris; N40.0 Benign prostatic hyperplasia without lower urinary tract symptoms; I95.89 Other hypotension; I44.0 Atrioventricular block, first degree; I48.0 Paroxysmal atrial fibrillation; F10.11 Alcohol abuse, in remission; D69.6 Thrombocytopenia, unspecified; E83.51 Hypocalcemia; E87.6 Hypokalemia; Z87.891 Personal history of nicotine dependence; Z95.5 Presence of coronary angioplasty implant and graft; Z85.828 Personal history of other malignant neoplasm of skin; I69.331 Monoplegia of upper limb following cerebral infarction affecting right dominant side; Z88.2 Allergy status to sulfonamides; Z88.7 Allergy status to serum and vaccine; Z79.02 Long term (current) use of antithrombotics/antiplatelets; Z11.52 Encounter for screening for COVID-19
CPT/HCPCS: 88305; 36600; 49083; 71046; 76604; 76700; 76705; 80048; 80053; 82042; 82150; 82248; 82805; 82962; 83036; 83540; 83550; 83615; 83690; 83735; 84145; 84157; 85025; 85027; 85610; 85730; 86015; 86704; 86705; 86706; 86708; 86709; 86803; 87015; 87070; 87205; 87340; 87811; 88112; 89051; 93005; 93306; 93975; 96374; 97162; 97167; 99285; P9047

== ENCOUNTER → 2023-06-28 15:08 | Outpatient (REF) | payer OTHER, SELFPAY ==
[2023-06-28 16:46] LABS: Blood Urea Nitrogen 26 mg/dl (9-20); Calcium 8.4 mg/dl (8.4-10.2); Carbon Dioxide 30 mmol/L (22-30); Chloride 105 mmol/L (98-107); Glucose 134 mg/dl (70-99); Potassium 3.3 mmol/L (3.5-5.1); Sodium 143 mmol/L (135-145); eGFR > 60.00
== END ==
LOC: REG 15:08
PROVIDERS: ATTENDING PHYSICIAN Internal Medicine Gastroenterology
DX: E87.0 Hyperosmolality and hypernatremia (principal)
CPT/HCPCS: 36415; 80048